=== PATIENT | female | born 1980 | race African-American/Black ===

== ENCOUNTER 2022-09-01 04:07 | Day surgery (SDC) | payer OTHER ==
[2022-08-28 11:58] VITALS: BMI 30.2
[2022-09-01 10:25] VITALS: RESP 18
[2022-09-01] MEDS ORDERED: MIDAZOLAM HCL 2 MG/2 ML SINGLE DOSE VIAL ONE (13:00)
[2022-09-01] MEDS ORDERED: ONDANSETRON 4 MG/2 ML VIAL ONE (13:27)
[2022-09-01 15:40] VITALS: BP 111/61; PULSE 74; TEMP 97.8
== END 2022-09-01 15:45 | disposition home or self-care (01) ==
LOC: JASU-SURG 04:07
PROVIDERS: ATTEND Urology
PROC: 0TF3XZZ Fragmentation in Right Kidney Pelvis, External Approach (ICD-10-PCS; principal; 2022-09-01 11:30)
DX: N20.0 Calculus of kidney (principal)
CPT/HCPCS: 81025